=== PATIENT | male | born 1990 | race Caucasian/White ===

== ENCOUNTER 2021-06-28 15:29 | Emergency (ER) | payer OTHER ==
[~2021-06-28] VITALS: Ht 170.2 cm; Wt 70.3 kg
[2021-06-28] MEDS ORDERED: IBU800 MG PO (21:27)
== END 2021-06-28 22:19 | disposition home or self-care (01) ==
LOC: ER 15:29
DX: S89.92XA Unspecified injury of left lower leg, initial encounter (principal); W18.30XA Fall on same level, unspecified, initial encounter; Y93.9 Activity, unspecified; Y92.9 Unspecified place or not applicable; S99.912A Unspecified injury of left ankle, initial encounter